=== PATIENT | male | born 2000 | race African-American/Black ===

== ENCOUNTER 2023-02-25 12:21 | Emergency (ER) | payer BC, SELFPAY ==
--- NOTE | ~2023-02-25 | XR_ITS ---
EXAMINATION: XR foot RT min 3V DATE: 02/25/2023 13:10 INDICATION: Laceration of right toes. TECHNIQUE: 4 views of right foot were obtained. COMPARISON: None. FINDINGS: There is moderate hallux valgus. There is a chip fracture of lateral base of second distal phalanx. There is a chip fracture of dorsal base of fifth distal phalanx. Joint spaces are normal. IMPRESSION: 1. Chip fractures of second and fifth distal phalanges. Reviewed, dictated and finalized at location A.
[2023-02-25 12:25] VITALS: BP 136/90; PULSE 88; RESP 20; TEMP 36.4; O2SAT 98
[2023-02-25 12:34] VITALS: BP 136/90; PULSE 97; RESP 18; TEMP 36.6; O2SAT 100
--- NOTE | 2023-02-25 13:32 | ED.WOUNDLAC ---
HPI - Wound/Laceration General Chief Complaint: Wound/Laceration Stated Complaint: Right foot lac Time Seen by Provider: 02/25/23 12:59 Source: patient Mode of arrival: ambulatory Limitations: no limitations History of Present Illness HPI narrative: Patient is a 23-year-old male who presents to the ED with report of lacerations to his right toes. Patient reports he was cutting grass for work today when he slipped and fell backwards pulling the lawnmower back over his right foot. He had boots on but the blades cut through the shoes and he sustained a laceration to his third toe. He also reports an injury to his fifth toe. Bleeding controlled at the time of my evaluation. Patient's tetanus status unknown. Denies numbness or tingling. He has been able to ambulate. Related Data Allergies Allergy/AdvReac Type Severity Reaction Status Date / Time No Known Allergies Allergy Verified 02/25/23 13:56 Review of Systems Review of Systems: CONSTITUTIONAL: Denies fever, chills, or sweats. SKIN: See HPI. MUSCULOSKELETAL: See HPI. NEUROLOGIC: Denies tingling, numbness, or weakness. All systems reviewed & are unremarkable except as noted in HPI and below Exam Narrative: GENERAL: Well appearing, well-nourished, non-toxic, in no acute distress. HEAD: Normocephalic, atraumatic. NECK: Supple. No adenopathy, no masses. RESPIRATORY: Airway patent, respirations nonlabored. Clear to auscultation bilaterally, no rales, rhonchi, wheezing. CARDIOVASCULAR: Regular rate and rhythm without murmurs, rubs, or gallops. Pedal pulses 2+ and equal bilaterally. MUSCULOSKELETAL: Moves all extremities. Strength/ROM intact. Tenderness to palpation throughout right second through fifth toes diffusely throughout toes, worst 3rd and 5th toes. SKIN: Warm, dry, normal color. No rashes. Small 0.25 cm V-shaped laceration to right third toe dorsally, no active bleeding. Small abrasion/blood blister formation to right fifth toe, injury/partial disruption to right fifth toe nail, though nail still attached, cuticle intact. NEURO: A&O X3. Speech clear. Cranial nerves II-XII grossly intact. Steady gait. No ataxic movements. PSYCHIATRIC: Appropriate mood and affect. Normal interaction. Course Vital Signs Vital signs: Vital Signs Temperature 97.6 F 02/25/23 12:25 Pulse Rate 88 02/25/23 12:25 Respiratory Rate 20 02/25/23 12:25 Blood Pressure 136/90 02/25/23 12:25 Pulse Oximetry 98 02/25/23 12:25 Oxygen Delivery Room Air 02/25/23 12:25 Temperature 97.8 F 02/25/23 12:34 Pulse Rate 90 02/25/23 16:29 Respiratory Rate 18 02/25/23 16:29 Blood Pressure 130/80 02/25/23 16:29 Pulse Oximetry 100 02/25/23 16:29 Oxygen Delivery Room Air 02/25/23 12:34 Procedures Laceration Laceration 1: Date: 02/25/23 Time: 15:40 Site: lower extremity (3rd digit) Side (If applicable): right Size (cm): 0.5 Description: linear Depth: simple, single layer Local Anesthetic: lidocaine 1% Amount of anesthesia used (mL): 3 Pre-repair: wound explored and irrigated ====== Skin Level ====== Skin layer closed with: nylon Size (cm): 5-0 Number of sutures: 2 Technique: simple, interrupted ====== Subcutaneous Layer ====== ====== Muscle Layer ====== ====== Tendon Layer ====== MDM - Wound/Laceration MDM Narrative Medical decision making narrative: Patient presented to ED status post lawnmower accident, injury to right toes. Patient with laceration to right third toe, nail injury to right fifth toe. Vital stable upon arrival. Patient neurovascularly intact. X-ray showing chip fractures of second and fifth distal phalanges. Patient without any large lacerations to these toes, though will cover for open fracture prophylaxis given abrasions and nail injury. Ancef given in the ED. Will discharge with Keflex. Tetanus updated. Lacera
[2023-02-25] MEDS: TETANUS,DIPHTHERIA,AC PERTUSSIS ADULT (0.5 ML) BOOSTRIX IM (14:03)
[2023-02-25] MEDS: ceFAZolin SODIUM 1 GM VIAL IM (14:04)
[2023-02-25] MEDS: LIDOCAINE HCL 1% LOCAL INJ 10 ML VIAL 5 ML INFILTRATE (14:04)
[2023-02-25] MEDS: LIDOCAINE HCL 1% LOCAL INJ 10 ML VIAL (15:33)
[2023-02-25] MEDS: cefTRIAXone 1 GM VIAL 0.5 GM IM (16:12)
[2023-02-25] MEDS: DOXYCYCLINE HYCLATE 100 MG TABLET PO (16:12)
[2023-02-25 16:22] LABS: Appearance Urine Cloudy (Clear); Bacteria Urine None Seen /hpf; Bilirubin Urine Negative (Negative); Blood Urine Negative (Negative); Color Urine Yellow (Yellow); Glucose Urine UA Negative (Negative); Ketones Urine Trace mg/dL (Negative); Leukocyte Esterase Ur Trace LEU/UL (Negative); Nitrate Urine Negative (Negative); Non Pathogenic Casts 0-2; Protein Urine Trace mg/dL (Negative); RBC Urine 0-2 /hpf (0-2); Specific Grav Ur 1.026 (1.001-1.035); Squamous Epithelial Cell Urine None seen /hpf (Few); pH Urine 7.5 (5.0-9.0)
[2023-02-25 16:23] LABS: Add Urine Microscopic? YES
[2023-02-25 16:29] VITALS: BP 130/80; PULSE 90; RESP 18; O2SAT 100
== END 2023-02-25 16:31 | disposition home or self-care (01) ==
PROVIDERS: Emergency Provider Physician Assistant
DX: S91.114A Laceration without foreign body of right lesser toe(s) without damage to nail, initial encounter (principal); S91.204A Unspecified open wound of right lesser toe(s) with damage to nail, initial encounter; S92.531A Displaced fracture of distal phalanx of right lesser toe(s), initial encounter for closed fracture; Z20.2 Contact with and (suspected) exposure to infections with a predominantly sexual mode of transmission; Z23 Encounter for immunization; W01.111A Fall on same level from slipping, tripping and stumbling with subsequent striking against power tool or machine, initial encounter; Y93.H2 Activity, gardening and landscaping
CPT/HCPCS: 12001; 73630; 81001; 87086; 87491; 87591; 90471; 90715; 96372; 99284; A9270; J0690; J0696